=== PATIENT | male | born 1970 | race Caucasian/White ===

== ENCOUNTER 2017-10-30 13:20 | Emergency (ER) | payer SELFPAY ==
[2017-10-30] MEDS ORDERED: HYDROcodone/Acetaminophen 10/325 mg Tablet ONE (13:44)
--- NOTE | 2017-10-30 14:48 | RAD ---
LEFT HAND 3 VIEWS: HISTORY: Hand injury with pain. 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 Mild narrowing of the radiocarpal and there is cystic change se en in the lunate. Mild DJD at the IP joint of the thumb and mild DJD at the 1st MCP joint. Some mil d DJD at the DIP joints. No fracture or acute abnormality. IMPRESSION: There are mild degenerative changes as described. No acute abnormality identified. POS: KRISTINA
== END 2017-10-30 14:26 | disposition home or self-care (01) ==
LOC: SCSER 13:20
DX: S60.222A Contusion of left hand, initial encounter (principal); F17.210 Nicotine dependence, cigarettes, uncomplicated; I10 Essential (primary) hypertension; Z71.6 Tobacco abuse counseling; W01.10XA Fall on same level from slipping, tripping and stumbling with subsequent striking against unspecified object, initial encounter
CPT/HCPCS: 99406

== ENCOUNTER 2018-03-02 12:21 | Emergency (ER) | payer OTHER, SELFPAY ==
[2018-03-02] MEDS ORDERED: Ibuprofen 800 MG TAB ONE (13:10)
== END 2018-03-02 13:20 | disposition home or self-care (01) ==
LOC: SCSER 12:21
DX: S43.401A Unspecified sprain of right shoulder joint, initial encounter (principal); E78.5 Hyperlipidemia, unspecified; K21.9 Gastro-esophageal reflux disease without esophagitis; I10 Essential (primary) hypertension; F31.9 Bipolar disorder, unspecified; F41.9 Anxiety disorder, unspecified; F17.210 Nicotine dependence, cigarettes, uncomplicated; Z79.899 Other long term (current) drug therapy; Z79.82 Long term (current) use of aspirin; X58.XXXA Exposure to other specified factors, initial encounter
CPT/HCPCS: 99283

== ENCOUNTER 2018-06-18 05:53 | Emergency (ER) | payer OTHER ==
[2018-06-18] MEDS ORDERED: Morphine 4 MG/ML VIAL ONE (06:06)
[2018-06-18] MEDS ORDERED: Lidocaine 1% PF 5 ML VIAL ONE (06:10)
[2018-06-18] MEDS ORDERED: Ondansetron ODT 8 MG TAB ONE (06:12)
--- NOTE | 2018-06-18 10:14 | RAD ---
LEFT INDEX FINGER 3 VIEWS: Date: 06/18/18 INDICATION: Nail gun injury to left index finger. IMPRESSION: There is a retained nail within the soft tissues radial to the distal phalanx of the left index finge r. No acute fracture is evident. IMPRESSION: Embedded nail within the soft tissues radial to the distal phalanx of the left index finger without a cute osseous abnormality. POS: BH
== END 2018-06-18 06:38 | disposition home or self-care (01) ==
LOC: SCSER 05:53
DX: S60.451A Superficial foreign body of left index finger, initial encounter (principal); E78.5 Hyperlipidemia, unspecified; F31.9 Bipolar disorder, unspecified; F41.9 Anxiety disorder, unspecified; F17.210 Nicotine dependence, cigarettes, uncomplicated; I10 Essential (primary) hypertension; K21.9 Gastro-esophageal reflux disease without esophagitis; Z79.82 Long term (current) use of aspirin; Z79.899 Other long term (current) drug therapy; W29.4XXA Contact with nail gun, initial encounter
CPT/HCPCS: 64450; 96372; J2001; J2270

== ENCOUNTER 2020-01-06 07:18 | Emergency (ER) | payer OTHER, SELFPAY ==
[2020-01-06] MEDS ORDERED: Ondansetron ODT 4 MG TAB ONE (09:50)
[2020-01-06] MEDS ORDERED: HYDROcodone/Acetaminophen 10/325 mg Tablet ONE (09:50)
--- NOTE | 2020-01-06 11:52 | RAD ---
RIGHT RIB SERIES TWO VIEWS: 01/06/20 PROVIDED CLINICAL HISTORY: Right-sided rib pain. FINDINGS: There is no evidence for a displaced right-sided rib fracture, pleural fluid or pneumothorax. IMPRESSION: As above. POS: JUANITO
== END 2020-01-06 09:55 | disposition home or self-care (01) ==
LOC: ERS 07:18
DX: B02.9 Zoster without complications (principal); E78.00 Pure hypercholesterolemia, unspecified; E78.5 Hyperlipidemia, unspecified; K21.9 Gastro-esophageal reflux disease without esophagitis; I10 Essential (primary) hypertension; H40.9 Unspecified glaucoma; F31.9 Bipolar disorder, unspecified; F41.9 Anxiety disorder, unspecified; F17.210 Nicotine dependence, cigarettes, uncomplicated; Z79.82 Long term (current) use of aspirin; Z79.899 Other long term (current) drug therapy
CPT/HCPCS: Q0162

== ENCOUNTER 2021-09-29 05:31 | Emergency (ER) | payer SELFPAY ==
[2021-09-29] MEDS ORDERED: Ondansetron ODT 4 MG TAB ONE (05:49)
[2021-09-29] MEDS ORDERED: Morphine 4 MG/ML VIAL ONE (05:49)
[2021-09-29] MEDS ORDERED: Lidocaine 1% MPF 2 ML VIAL ONE (07:23)
[2021-09-29] MEDS ORDERED: HYDROcodone/Acetaminophen 10/325 mg Tablet ONE (08:20)
== END 2021-09-29 08:28 | disposition home or self-care (01) ==
LOC: ERS 05:31
DX: S61.412A Laceration without foreign body of left hand, initial encounter (principal); E78.5 Hyperlipidemia, unspecified; E78.00 Pure hypercholesterolemia, unspecified; K21.9 Gastro-esophageal reflux disease without esophagitis; I10 Essential (primary) hypertension; F17.210 Nicotine dependence, cigarettes, uncomplicated; Z79.82 Long term (current) use of aspirin; Z79.899 Other long term (current) drug therapy; W22.8XXA Striking against or struck by other objects, initial encounter
CPT/HCPCS: 12002; 96372; J2270; Q0162

== ENCOUNTER 2024-10-17 13:50 | Observation (INO) | payer OTHER, SELFPAY ==
[2024-10-17 14:12] LABS: #Basophils 0.05 10x3/uL (0.0-0.2); #Eosinophils 0.17 10x3/uL (0.0-0.7); #Monocytes 0.51 10x3/uL (0.11-0.59); #Neutrophils 4.34 10x3/uL (1.40-6.50); %Basophils 0.6 % (0.0-1.0); %Eosinophils 2.2 % (0.0-10.0); %Lymphocytes 35.2 % (21.0-51.0); %Monocytes 6.5 % (0.0-10.0); %Neutrophils 55.2 % (42.0-75.0); Hematocrit 40.3 % (42.0-52.0); Hemoglobin 14.0 g/dL (14.0-18.0); Mean Corpuscular Hemoglobin 28.2 pg (27.0-31.0); Mean Corpuscular Volume 81.3 fL (78.0-98.0); Platelet Count 180 10x3/uL (130-400); Red Blood Cell (RBC) Count 4.96 mill/uL (4.70-6.10); White Blood Cell (WBC) Count 7.86 10x3/uL (4.8-10.8)
[2024-10-17] MEDS ORDERED: Aspirin Chewable 81 MG TAB ONE (14:12)
[2024-10-17 14:29] LABS: ALT (SGPT) 41 U/L (Less than 45); AST (SGOT) 32 U/L (11-34); Albumin 4.6 g/dL (3.1-4.5); Alkaline Phosphatase 76 U/L (40-110); Anion Gap 14 mmol/L (10-20); BUN (Urea Nitrogen) 14 mg/dL (8.4-25.7); Bilirubin, Total 0.2 mg/dL (0.3-1.2); Calc. Creatinine Clearance 0 mL/min (70-130); Calcium 9.2 mg/dL (7.8-10.44); Carbon Dioxide 24 mmol/L (22-29); Chloride 104 mmol/L (98-107); Globulin 2.6 g/dL (2.4-3.5); Glucose 166 mg/dL (70-105); Lipase 44 U/L (8-78); Magnesium 1.9 mg/dL (1.6-2.6); Potassium 3.3 mmol/L (3.5-5.1); Sodium 139 mmol/L (136-145)
[2024-10-17] MEDS ORDERED: Acetaminophen 325 MG TAB PO PRN (16:53)
[2024-10-17 17:44] LABS: Cardiac Risk 4.7 (Less than 4.5); Cholesterol 163 mg/dl (< 200 Desired); HDL Cholesterol 35 mg/dL (>60 Neg Risk); Triglycerides 449 mg/dL (Less than 150)
[2024-10-17 19:42] VITALS: BMI 28.5
[2024-10-17] MEDS: Famotidine 20 MG TAB PO SCH (20:23)
[2024-10-17] MEDS: Rosuvastatin 20 MG TAB PO SCH (20:52)
[2024-10-17] MEDS ORDERED: Non-Formulary Item 1 EACH (Doxepin Hcl [Doxepin Hcl] 100 MG Capsule) PO SCH (21:00)
[2024-10-18] MEDS: Nitroglycerin 0.4 MG TAB (25 Tab Bottle) SL PRN (01:58)
[2024-10-18 06:11] LABS: Anion Gap 12 mmol/L (10-20); BUN (Urea Nitrogen) 12 mg/dL (8.4-25.7); Calc. Creatinine Clearance 128 mL/min (70-130); Calcium 9.4 mg/dL (7.8-10.44); Carbon Dioxide 26 mmol/L (22-29); Chloride 107 mmol/L (98-107); Glucose 113 mg/dL (70-105); Potassium 4.0 mmol/L (3.5-5.1); Sodium 141 mmol/L (136-145)
[2024-10-18] MEDS: Enoxaparin 40 MG (0.4 mL) SYRINGE SC SCH (08:24)
[2024-10-18] MEDS: Aspirin Chewable 81 MG TAB PO SCH (08:24)
[2024-10-18] MEDS ORDERED: Non-Formulary Item 1 EACH (Paroxetine Hcl [Paxil] 30 MG Tablet) PO SCH (09:00)
[2024-10-18] MEDS ORDERED: Sertraline 100 MG TAB PO SCH ×2 (09:00→21:00)
[2024-10-18 11:53] VITALS: BP 169/89; TEMP 98
== END 2024-10-18 14:53 | disposition home or self-care (01) ==
LOC: ERS 13:50 → OBS 16:25
PROVIDERS: ADMIT Internal Medicine; ATTEND Family Medicine
DX: R07.9 Chest pain, unspecified (principal); I10 Essential (primary) hypertension; E78.5 Hyperlipidemia, unspecified; E87.6 Hypokalemia; K21.9 Gastro-esophageal reflux disease without esophagitis; F31.9 Bipolar disorder, unspecified; F41.9 Anxiety disorder, unspecified; F17.210 Nicotine dependence, cigarettes, uncomplicated; Z88.8 Allergy status to other drugs, medicaments and biological substances; Z79.899 Other long term (current) drug therapy
CPT/HCPCS: 36415; 36416; 71045; 78452; 80048; 80053; 80061; 83036; 83690; 83735; 83880; 84443; 84484; 85025; 93005; 93017; 94760; A9502; J1650; J2785